=== PATIENT | male | born 1985 | race Caucasian/White ===

== ENCOUNTER 2018-11-04 07:29 | Observation (INO) ==
--- NOTE | 2018-11-04 07:46 | Emergency Department Note ---
Disposition Clinical Impression: Acute epiglottitis without airway obstruction Pharyngitis Qualifiers: Pharyngitis/tonsillitis etiology: unspecified etiology Qualified Code(s): J02.9 - Acute pharyngitis, unspecified Diabetes Qualifiers: Diabetes mellitus type: type 2 Diabetes mellitus roasterman insulin use: without roasterman use Diabetes mellitus complication status: without complication Qualified Code(s): E11.9 - Type 2 diabetes mellitus without complications Disposition: Admitted As Inpatient Condition: Fair Time of Disposition: 11:06 General Adult HPI - General Stated complaint: cant talk/swallow Time Seen by Provider: 11/04/18 07:31 Source: patient, family Limitations: no limitations Nursing Notes Reviewed: Yes Vital Signs Reviewed: Yes - History of Present Illness HPI Narrative: 33-year-old male with history of diabetes and hypothyroidism who presents the emergency department with complaints of painful swallowing, hoarse voice and inability to tolerate food or fluids over the last 24 hours. The patient states this started initially as nasal congestion proximally 3 days ago and since progressed to sore throat. Since yesterday he has not eaten or drank anything as he states it is too painful to swallow. He also states he feels his voice is more high-pitched than usual. He states he had sick contact of his who had similar symptoms last week. He denies any fever, nausea, vomiting, abdominal pain, chest pain, shortness of breath, rashes, ear pain. He notes he did get childhood vaccinations. Pain Scale: 9 - Related Data Home Medications Medication Instructions Recorded Confirmed GlyBURIDE DAILY 11/04/18 Levothyroxine 11/04/18 11/04/18 Lisinopril DAILY 11/04/18 metFORMIN BID 11/04/18 Previous Rx's Medication Instructions Recorded Ibuprofen [Motrin] 800 mg PO Q8HR #30 tablet 07/10/18 Allergies Allergy/AdvReac Type Severity Reaction Status Date / Time No Known Allergies Allergy Verified 07/10/18 16:39 Review of Systems: ROS per history of present illness, all other systems reviewed and negative or normal. All systems ED: reviewed and negative except as stated. Review of Systems: As Per HPI Past Medical History - Past Medical History Medical history: Reports: diabetes, myocardial infarction Psychiatric history: Reports: no psych history - Social History Smoking Status: Never smoker Smokeless Tobacco Status: No Alcohol use: Reports: occasionally Drug use: Reports: none Physical Exam General: Conversant. No apparent distress. Follow commands. Appears stated age. Patient spitting his secretions into a plastic bottle. No hoarse or muffled voice. Neck: No JVD. Trachea midline. Neck supple. Bilateral anterior cervical painful lymphadenopathy. Eyes: PERRL. No scleral icterus. HENT: Normocephalic and atraumatic. Moist mucus membranes. Patient is status post adenoidectomy. There is no uvular swelling or deviation. No peritonsillar asymmetry. No sublingual tenderness. Able to retract and protrude jaw with slight pain. Cardiovascular: Regular rate and rhythm. Normal S1 and S2. No murmurs appreciated. Normal capillary refill. Extremities well perfused with 2+ distal pulses bilaterally. No edema. Pulmonary: Normal and equal breath sounds bilaterally, anteriorly and posteriorly. No wheezes, rales, or rhonchi. Not in respiratory distress. Speaks in full sentences. No stridor. Abdomen: Soft, nondistended, and tontender. No bruits or masses. No guarding. Neuro: Alert and oriented x3. No slurred speech. Skin: No rashes noted on visualized skin. Musculoskeletal: No bony abnormalities visualized. Moves all extremities. Psych: Normal mood. Pleasant. Makes appropriate eye contact. - General Limitations: no limitations General appearance: alert, in no apparent distress Course - Reevaluation(s) Reevaluation #1: XR soft tissue neck shows enlarged epiglottis, unable to full visualize prevertebral spaces. Patient continues to be unable to tolerate secretions but he is otherwise very comfortable, maintaining 100% saturation Time: 08:15 Reevaluation #2: Patient reevaluated and continues to spit his secretions into bottle but he continues to have no stridor, wheezing, or difficulty breathing. Time: 10:58 - Consultations Consultation #1: Discussed case with ENT nurse practitioner. She recommends 20mg decadron and agrees with plan for IV antibiotics and CT. At this point the patient continues to be stable and in no acute distress, maintain saturation on room air. Time: 08:40 Consultation #2: Discussed case with radiologist who agrees there is definitely laryngitis as well as epiglottitis evidenced on CT soft tissue neck. Time: 10:44 Vital Signs Temperature 98.1 F 11/04/18 07:32 Pulse Rate 87 11/04/18 07:32 Respiratory Rate 18 06/17/19 07:32 Blood Pressure 144/98 11/04/18 07:32 O2 Sat by Pulse Oximetry 98 11/04/18 07:32 Temperature 97.9 F 11/04/18 15:22 Pulse Rate 87 11/04/18 15:22 Respiratory Rate 18 11/04/18 15:22 Blood Pressure 144/90 11/04/18 15:22 O2 Sat by Pulse Oximetry 93 11/04/18 15:22 Oxygen Delivery Oxygen Delivery Room Air Medical Decision Making - MDM Narrative Medical decision making narrative: 33-year-old male who presents to emergency department with complaints of difficulty swallowing. On arrival patient is unable to tolerate his secretions. He does appear comfortable however and is not stridorous or having difficulty breathing. We did obtain an x-ray soft tissue neck which shows enlarged epiglottis, concerning for epiglottitis. Especially given the patient's inability to tolerate his secretions we did obtain CT soft tissue neck with IV contrast which shows epiglottitis and pharyngitis. The patient continues to maintain a patent airway with 100% oxygen saturation on room air without stridor or tripoding. I did discuss the case with on-call ENT nurse practitioner, Sierra Simmons who recommends 20 mg Decadron and agrees with plan for clindamycin and ceftriaxone. They will consult to see the patient upon admission. At this time the patient does not require immediate intervention and is therefore stable for inpatient admission. Discussed case with on-call hospitalist Dr. Rodriguez who agrees with plan for admission and accepts the patient to the inpatient service. Patient agrees with and understands course of treatment plan including plan for admission. All questions answered. - Medical Records Medical records reviewed: Yes I reviewed the patient's medical records. - Lab Data Lab results reviewed: Yes I reviewed the patient's lab results. Result diagrams: 11/04/18 08:37 11/04/18 08:37 Lab Results 11/04/18 11/04/18 Range/Units 08:37 08:37 WBC 11.6 H (4.3-11.1) K/mcL RBC 5.02 (4.19-5.50) M/mcL Hgb 14.1 (12.9-16.9) g/dL Hct 42.9 (37.5-50.1) % MCV 85.5 (83.0-100.0) fL MCH 28.1 (28.0-33.3) pg MCHC 32.9 (31.6-35.5) g/dL RDW 12.1 (11.5-14.5) % Plt Count 226 (140-400) K/mcL MPV 10.5 (9.4-12.4) fL Immature Gran % 0.5 (0-4) % Seg Neutrophils % 72.0 % Lymphocytes % 19.4 % Monocytes % 5.7 % Eosinophils % 2.1 % Basophils % 0.3 % Neutrophils # 8.4 (1.6-8.9) K/mcL Lymphocytes # 2.3 (0.6-4.6) K/mcL Monocytes # 0.7 (0.0-1.3) K/mcL Eosinophils # 0.2 (0.0-0.6) K/mcL Basophils # 0.0 (0.0-0.2) K/mcL Sodium 138 (136-145) mEq/L Potassium 4.1 (3.5-5.1) mEq/L Chloride 98 (98-107) mEq/L Carbon Dioxide 31 H (23-29) mEq/L BUN 10 (6-20) mg/dL Creatinine 0.70 (0.70-1.30) mg/dL Est GFR ( Amer) > 60 (> 60) Est GFR (Non-Af Amer) > 60 (> 60) BUN/Creatinine Ratio 14 (6-26) Glucose 270 H (70-105) mg/dL Calculated Osmolality 295 (280-300) Calcium 9.6 (8.6-10.3) mg/dL - Radiology Data Radiology results reviewed: Yes I reviewed the patient's radiology results. Soft Tissue Neck X-Ray 11/04/18 07:54 IMPRESSION: Nonspecific thickening of the epiglottis which could be related to acute epiglottitis. Dedicated CT of the neck with IV contrast is recommended for further evaluation. D/ / 11/04/2018 08:39:45 Torito Bell MD / andre Interpreting Provider: Torito Bell MD Soft Tissue Neck CT 11/04/18 08:18 IMPRESSION: 1. Findings concerning for acute epiglottitis and laryngitis. 2. No discrete abscess. 3. Dental caries. 4. Left mastoid effusion, correlate with signs of infection. D/ / 11/04/2018 10:48:50 Torito Bell MD / rosalia Interpreting Provider: Torito Bell MD Attestation Statement - Attestation Attestation: I, Drew Francisco, examined this patient and my medical decision-making was reviewed with the LUNCHROOM MOTHER/PA/Advanced Practice Nurse/Resident Physician. I agree with the documented findings, disposition and treatment plan as described except to the extent set forth below. 33-year-old male presents emergency Department with concerns of difficulty swallowing and pain in his throat. Pain is worsening over the 24-48 hours however over the night he was unable to lay flat as it irritated his breathing. Patient denies fever, chills, nausea, vomiting, recent trauma. Does not smoke. Patient noted he had a viral upper respiratory infection last week. Soft tissue x-ray showed swelling of the epiglottis. The CT of soft tissue neck confirmed epiglottitis. Patient was started on antibiotics emergency department. We spoke with the ENT physician who felt comfortable with admitting the patient to the hospital and is aware patient's situation. Patient was admitted to the hospitalist for further care and evaluation.
[2018-11-04] MEDS ORDERED: Dexamethasone 10 MG/ML VIAL PO ONE (08:13)
[2018-11-04] MEDS ORDERED: Isovue-370 500 ML BOTTLE IVP ONE (08:18)
[2018-11-04] MEDS ORDERED: Dexamethasone 4 MG/ML VIAL IVP ONE ×2 (08:23→08:39)
[2018-11-04] MEDS ORDERED: Ketorolac 15 MG/ML VIAL IVP ONE (08:23)
[2018-11-04] MEDS ORDERED: cefTRIAXone 1,000 MG in Water for inj. (sterile) 20 ML 10 ML IVP ONE (08:29)
[2018-11-04] MEDS ORDERED: Clindamycin 900 MG/50 ML 900 MG/50 ML IV.SOLN IVPB ONE (08:30)
[2018-11-04 08:58] LABS: Basophils % 0.3 %; Eosinophils # 0.2 K/mcL (0.0-0.6); Eosinophils % 2.1 %; Hematocrit 42.9 % (37.5-50.1); Hemoglobin 14.1 g/dL (12.9-16.9); Immature Granulocytes % 0.5 % (0-4); Lymphocytes # 2.3 K/mcL (0.6-4.6); Lymphocytes % 19.4 %; Mean Corpuscular HGB Conc 32.9 g/dL (31.6-35.5); Mean Corpuscular Hemoglobin 28.1 pg (28.0-33.3); Mean Corpuscular Volume 85.5 fL (83.0-100.0); Mean Platelet Volume 10.5 fL (9.4-12.4); Monocytes # 0.7 K/mcL (0.0-1.3); Monocytes % 5.7 %; Neutrophils # 8.4 K/mcL (1.6-8.9); Platelet Count 226 K/mcL (140-400); Red Blood Count 5.02 M/mcL (4.19-5.50); Red Cell Distribution Width 12.1 % (11.5-14.5); White Blood Count 11.6 K/mcL (4.3-11.1)
[2018-11-04 09:14] LABS: BUN/Creatinine Ratio 14 (6-26); Blood Urea Nitrogen 10 mg/dL (6-20); Calcium 9.6 mg/dL (8.6-10.3); Carbon Dioxide 31 mEq/L (23-29); Chloride 98 mEq/L (98-107); Glucose 270 mg/dL (70-105); Osmolality,Calculated 295 (280-300); Potassium 4.1 mEq/L (3.5-5.1); Sodium 138 mEq/L (136-145); eGFR For African Americans > 60 (> 60); eGFR For Non-African Americans > 60 (> 60)
--- NOTE | 2018-11-04 11:50 | ENT - Consult Note ---
<Sierra Simmons A - Last Filed: 11/04/18 11:48> Date of Encounter: 11/04/18 Time of Encounter: 11:48 Assessment and Plan (1) Supraglottic edema Current Visit: Yes Status: Acute Patient seen and examined with Nasolaryngoscopy performed at bedside today. Patient currently demonstrates a stable patent airway, with some supraglottic watery edema visualized, not epiglottitis, see nasolaryngoscopy exam findings in procedure note. Patient's respiratory status is currently stable with O2 sats greater than 96% on room air, no wheezing, stridor, or shortness of breath. he reports significant improvement of voice and symptoms of odynophagia and dysphagia with administration of IV Decadron. Recommend IV antibiotics, with continuation of IV Decadron 10 mg every 8 hours 2 more doses, admission for close observation due to potential for airway compromise, with continuous pulse ox. Plan to repeat nasolaryngoscopy exam tomorrow. All questions answered. (2) Airway compromise Current Visit: Yes Status: Acute Airway is currently patent, with patency demonstrated on CT scan obtained, as well as, visualized with nasolaryngoscopy exam. Recommend continuous pulse ox, with suction at bedside. History of Present Illness Consult date: 11/04/18 Reason for ENT Consult: airway complication, other (possible epiglottitis) Requesting physician: Reny Oliva History of present illness: Patient is 33-year-old male with past medical history of diabetes, hypothyroidism, obesity, and prior tonsillectomy, who presented to the emergency department with complaint of dysphagia, odynophagia, increased hoarseness, shortness of breath, and difficulty controlling secretions for the past 24 hours. Patient reports he has had symptoms of increased nasal and sinus congestion with postnasal drainage for 3-5 days, prior to start of symptoms. Upon arrival patient had x-ray obtained which demonstrated some thickening of the epiglottis and ENT was subsequently consulted for evaluation due to concern of airway obstruction, acute epiglottitis. Vitals are currently stable, with O2 saturation greater than 96% on room air. Patient is currently able to speak without difficulty, no severe hoarseness noted. No shortness of breath, stridor, or wheezing at this time. Past Med Surg Social Fam HX - Past Medical History Medical history: diabetes, myocardial infarction Psychiatric history: no psych history - Social History Smoking Status: Never smoker Smokeless Tobacco Status: No Alcohol use: occasionally Drug use: none Medications and Allergies Ibuprofen [Motrin] 800 mg PO Q8HR #30 tablet 07/10/18 [Rx] GlyBURIDE DAILY 11/04/18 [History] Levothyroxine 11/04/18 [History] Lisinopril DAILY 11/04/18 [History] metFORMIN BID 11/04/18 [History] Allergy/AdvReac Type Severity Reaction Status Date / Time No Known Allergies Allergy Verified 07/10/18 16:39 ENT - ROS - EENT Nose, mouth and throat: hoarseness, odynophagia, sore throat, other (difficulty controlling secretions) ENT Exam Initial Vital Signs Temp Pulse Resp BP Pulse Ox 98.1 F 87 18 144/98 98 11/04/18 07:32 11/04/18 07:32 11/04/18 07:32 11/04/18 07:32 11/04/18 07:32 - General physical appearance well developed, well nourished, no distress - Eyes PERRL, normal ocular movement - ENT normal pinna, CN 2-12 grossly intact, Other (Oral: Teeth with severe decay upper and lower, oral mucosa moist, no edema or fullness palpated to the tongue or floor of mouth, uvula midline, oropharynx widely patent, tonsil surgically absent. Nose: Nares patent bilaterally, clear rhinorrhea present, septum deviated to the left, inferior turbinate hypertrophy bilateral. EARS: EACs clear bilaterally, TMs with mild retraction bilaterally, tympanosclerosis noted to bilateral TMs. No perforation) - Neck no masses, trachea midline, no lymphadectomy - Respiratory normal expansion, normal respiratory effort - Neurologic CN 2-12 grossly intact, normal coordination, normal sensation - Musculoskeletal normal gait, normal posture - Psychiatric oriented to time, oriented to person, oriented to place, speech is normal Exam Initial Vital Signs Temp Pulse Resp BP Pulse Ox 98.1 F 87 18 144/98 98 11/04/18 07:32 11/04/18 07:32 11/04/18 07:32 11/04/18 07:32 11/04/18 07:32 Results - Labs 11/04/18 08:37 11/04/18 08:37 Abnormal lab results WBC 11.6 K/mcL (4.3-11.1) H 11/04/18 08:37 Carbon Dioxide 31 mEq/L (23-29) H 11/04/18 08:37 Glucose 270 mg/dL (70-105) H 11/04/18 08:37 Diabetes panel 11/04/18 Range/Units 08:37 Sodium 138 (136-145) mEq/L Potassium 4.1 (3.5-5.1) mEq/L Chloride 98 (98-107) mEq/L Carbon Dioxide 31 H (23-29) mEq/L BUN 10 (6-20) mg/dL Creatinine 0.70 (0.70-1.30) mg/dL Glucose 270 H (70-105) mg/dL Calcium 9.6 (8.6-10.3) mg/dL Calcium panel 11/04/18 Range/Units 08:37 Calcium 9.6 (8.6-10.3) mg/dL Pituitary panel 11/04/18 Range/Units 08:37 Sodium 138 (136-145) mEq/L Potassium 4.1 (3.5-5.1) mEq/L Chloride 98 (98-107) mEq/L Carbon Dioxide 31 H (23-29) mEq/L BUN 10 (6-20) mg/dL Creatinine 0.70 (0.70-1.30) mg/dL Glucose 270 H (70-105) mg/dL Calcium 9.6 (8.6-10.3) mg/dL Adrenal panel 11/04/18 Range/Units 08:37 Sodium 138 (136-145) mEq/L Potassium 4.1 (3.5-5.1) mEq/L Chloride 98 (98-107) mEq/L Carbon Dioxide 31 H (23-29) mEq/L BUN 10 (6-20) mg/dL Creatinine 0.70 (0.70-1.30) mg/dL Glucose 270 H (70-105) mg/dL Calcium 9.6 (8.6-10.3) mg/dL All other labs normal. Consult Discharge Plan - Plan Referrals: NONE,PCP [Primary Care Provider] - <Luzma Turner - Last Filed: 11/04/18 16:49> Date of Encounter: 11/04/18 Assessment and Plan (1) Supraglottic edema Current Visit: Yes Status: Acute (2) Airway compromise Current Visit: Yes Status: Acute ENT Exam Initial Vital Signs Temp Pulse Resp BP Pulse Ox 98.1 F 87 18 144/98 98 11/04/18 07:32 11/04/18 07:32 11/04/18 07:32 11/04/18 07:32 11/04/18 07:32 Exam Initial Vital Signs Temp Pulse Resp BP Pulse Ox 98.1 F 87 18 144/98 98 11/04/18 07:32 11/04/18 07:32 11/04/18 07:32 11/04/18 07:32 11/04/18 07:32 Results - Labs 11/04/18 08:37 11/04/18 08:37 Abnormal lab results WBC 11.6 K/mcL (4.3-11.1) H 11/04/18 08:37 Carbon Dioxide 31 mEq/L (23-29) H 11/04/18 08:37 Glucose 270 mg/dL (70-105) H 11/04/18 08:37 Diabetes panel 11/04/18 Range/Units 08:37 Sodium 138 (136-145) mEq/L Potassium 4.1 (3.5-5.1) mEq/L Chloride 98 (98-107) mEq/L Carbon Dioxide 31 H (23-29) mEq/L BUN 10 (6-20) mg/dL Creatinine 0.70 (0.70-1.30) mg/dL Glucose 270 H (70-105) mg/dL Calcium 9.6 (8.6-10.3) mg/dL Calcium panel 11/04/18 Range/Units 08:37 Calcium 9.6 (8.6-10.3) mg/dL Pituitary panel 11/04/18 Range/Units 08:37 Sodium 138 (136-145) mEq/L Potassium 4.1 (3.5-5.1) mEq/L Chloride 98 (98-107) mEq/L Carbon Dioxide 31 H (23-29) mEq/L BUN 10 (6-20) mg/dL Creatinine 0.70 (0.70-1.30) mg/dL Glucose 270 H (70-105) mg/dL Calcium 9.6 (8.6-10.3) mg/dL Adrenal panel 11/04/18 Range/Units 08:37 Sodium 138 (136-145) mEq/L Potassium 4.1 (3.5-5.1) mEq/L Chloride 98 (98-107) mEq/L Carbon Dioxide 31 H (23-29) mEq/L BUN 10 (6-20) mg/dL Creatinine 0.70 (0.70-1.30) mg/dL Glucose 270 H (70-105) mg/dL Calcium 9.6 (8.6-10.3) mg/dL All other labs normal. - Attending Attestation The history, physical exam, and medical decision making was performed by myself in conjunction with the nurse practioner who saw the patient at the bedside. I was physically present and actively performed the examination and medical decision making. I have verified the accuracy of the Nurse practioners documentation with regards to communicating my history, physical exam findings, and medical decision making. Flexible laryngoscopy was performed at the bedside and the findings are dictated in a separate procedure note.
--- NOTE | 2018-11-04 12:03 | ENT - Procedure Note ---
Date of procedure: 11/04/18 Procedure: Procedure: Flexible laryngoscopy, diagnostic CPT 43151 Preprocedure diagnosis: Shortness of breath, airway obstruction Postprocedure diagnosis: Shortness of breath, airway obstruction, supraglottitis Blood loss: 0 Specimen: 0 Anesthesia: Topical, 50-50 mixture of 4% Xylocaine and oxymetazoline Flexible laryngoscopy procedure in detail: Procedure was explained to the patient at the bedside verbal consent was obtained. Bilateral nares are sprayed with a 50-50 mixture of oxymetazoline and topical lidocaine. Time was given to allow anesthesia as well as decongestion of the nasal airway. Flexible laryngoscope was then advanced into the right naris. Nasal mucosa was moist, no polyps no masses no obstruction. Scope was further advanced, nasopharynx was without mass or lesion. tongue base was normal without mass or lesion, petiole of the epiglottis was normal without any edema but the base of the epiglottis did have some watery edema of the mucosa that extended onto the AE folds bilaterally. Also watery edema of the arytenoids and posterior cricoid area. No obstruction, no masses., piriform sinuses with some pooling of secretions, minimal. Some mucoid secretions.. Good glottic opening with full AB duction of the vocal cords bilaterally. Subglottis showed no obstruction. False cords were slightly edematous . There were pachydermic changes of the posterior cricoid area at esophageal inlet. Scope was removed. Patient tolerated this procedure well. Overall assessment shows cervical otitis was watery edema of the supraglottic structures particularly the AE folds arytenoids and posterior cricoid area. Patient with a good glottic opening and no obstruction of the glottis but there is some narrowing in the supraglottic region.. Anesthesia: topical Was there an assistant branch manager present: Yes Slurry Mixer: Sierra Simmons Estimated blood loss (cc): 0 Condition: stable
[2018-11-04] MEDS ORDERED: cefTRIAXone 1,000 MG in Water for inj. (sterile) 20 ML 10 ML IVP SCH (13:00)
[2018-11-04] MEDS ORDERED: cefTRIAXone 1,000 MG in 0.9 % Sodium Chloride Mini Bag 100 ML IVPB SCH (13:00)
--- NOTE | 2018-11-04 13:30 | Internal Med History&Physical ---
<Aliyah Wright - Last Filed: 11/04/18 13:27> Date of Encounter: 11/04/18 Time of Encounter: 13:27 Internal Medicine - H&P: HPI Chief complaint: painful swallowing Admitted From: Emergency Dept Plans for Post Hospital Care: Home History of present illness: Mr. Bojorquez is a 33 year old male with PMHx of hypothyroidism, DM type 2, HTN. Patient arrived to the ED today with 3 days of painful swallowing, cough with green/white sputum production and trouble swallowing secretions. patient states that he had trouble swallowing his secretions so he came to the emergency department. He denies nausea, vomiting, diarrhea, fevers, chills, chest pain, shortness of breath, hematochezi, melena, hematuria. in ED he had CT neck done that showed epiglottitis/laryngitis. There was no evidence of discrete abscess. consult to ENT was made and patient was admitted for IV antibiotics. Past Med Surg Social Fam HX - Past Medical History Medical history: diabetes, myocardial infarction Psychiatric history: no psych history - Social History Smoking Status: Never smoker Smokeless Tobacco Status: No Alcohol use: occasionally Drug use: none Internal Medicine - H&P: Meds Aspirin 81 mg PO DAILY 11/04/18 [History] Glimepiride [Amaryl] 4 mg PO DAILY 11/04/18 [History] Levothyroxine Sodium [Levo-T] 200 mcg PO QAM 11/04/18 [History] Lisinopril [Zestril] 5 mg PO HS 11/04/18 [History] Metformin HCl [Glucophage] 1,000 mg PO BIDWM 11/04/18 [History] Allergy/AdvReac Type Severity Reaction Status Date / Time No Known Allergies Allergy Verified 11/04/18 18:14 All Systems PM: A 10-system review of systems was performed and is negative for pertinent findings except as documented above in the HPI. - Constitutional Constitutional: as per HPI - EENT Eyes: as per HPI Ears: as per HPI Nose, mouth and throat: as per HPI - Breasts Breasts: as per HPI - Cardiovascular Cardiovascular ROS IM: as per HPI - Respiratory Respiratory: as per HPI - Gastrointestinal Gastrointestinal: as per HPI - Genitourinary Genitourinary ROS male: as per HPI - Musculoskeletal Musculoskeletal ROS IM: as per HPI - Integumentary Integumentary IM: as per HPI - Neurological Neurological ROS: as per HPI - Psychiatric Psychiatric: as per HPI - Endocrine Endocrine IM: as per HPI - Hematologic/Lymphatic Hematologic/Lymphatic: as per HPI - Allergic/Immunologic Allergic/Immunologic: as per HPI - Constitutional Vitals: Temp Pulse Resp BP Pulse Ox 98.1 F 84 20 148/94 96 11/04/18 07:38 11/04/18 10:32 11/04/18 10:32 11/04/18 10:32 11/04/18 10:32 General appearance: Present: A&O X 3, pleasant, no acute distress, answers questions appropriately Exam: morbidly obese - Head Head exam: Present: atraumatic, normocephalic - ENT ENT exam: Present: mucous membranes moist Additional comments: mucous membranes moist, no obstructions/masses, abscesses noted. - Neck Neck exam general surgery: Present: supple, trachea midline - Respiratory Respiratory exam: Present: CTAB - Cardiovascular Cardiovascular exam: Present: RRR, +S1, +S2. Absent: diastolic murmur, gallop, systolic murmur - GI/Abdominal GI/Abdominal exam: Present: normal bowel sounds. Absent: distended, soft, tenderness - Extremities Exam Extremities exam: Absent: cyanotic, pedal edema, tenderness - Neurological Exam Neurological exam: Present: alert, oriented X3, no focal deficits - Skin Skin exam: Present: dry. Absent: cyanosis Internal Med - H&P Results - Labs CBC & Chem 7: 11/04/18 08:37 11/04/18 08:37 Labs: Short CBC 11/04/18 Range/Units 08:37 WBC 11.6 H (4.3-11.1) K/mcL Hgb 14.1 (12.9-16.9) g/dL Hct 42.9 (37.5-50.1) % Plt Count 226 (140-400) K/mcL Neutrophils # 8.4 (1.6-8.9) K/mcL BMP 11/04/18 08:37 Sodium 138 Potassium 4.1 Chloride 98 Carbon Dioxide 31 H BUN 10 Creatinine 0.70 Glucose 270 H Calcium 9.6 - Impressions ITS Impressions Soft Tissue Neck X-Ray 11/04/18 07:54 IMPRESSION: Nonspecific thickening of the epiglottis which could be related to acute epiglottitis. Dedicated CT of the neck with IV contrast is recommended for further evaluation. D/ / 11/04/2018 08:39:45 Torito Bell MD / [facility] Interpreting Provider: Torito Bell MD Soft Tissue Neck CT 11/04/18 08:18 IMPRESSION: 1. Findings concerning for acute epiglottitis and laryngitis. 2. No discrete abscess. 3. Dental caries. 4. Left mastoid effusion, correlate with signs of infection. Results were discussed with Dr. Oliva at 10:41 a.m. on 11/04/2018. D/ / 11/04/2018 10:48:50 Torito Bell MD / [email or web address] Interpreting Provider: Torito Bell MD Chest X-Ray 11/04/18 10:59 IMPRESSION: 1. No radiographic finding to account for patient's cough. D/ / Augustine Partida MD / Augustine Partida MD Interpreting Provider: Augustine Partida MD - Assessment and Plan (1) Acute epiglottitis without airway obstruction Current Visit: Yes Status: Acute Assessment and plan: patient complaining of 3 days of neck pain, trouble swallowing, cough with sputum production. CXR unremarkable. CT neck shows epiglottitis and laryngitis without any discrete abscess or dental caries. Plan: consult to ENT-appreciate recs. s/p nasolaryngoscopy at bedside, with plan for repeat scope tomorrow. 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 Diabetes mellitus complication status: without complication Qualified Code(s): E11.9 - Type 2 diabetes mellitus without complications (4) Hypothyroidism Current Visit: Yes Status: Acute Assessment and plan: continue synthroid Qualifiers: Hypothyroidism type: unspecified Qualified Code(s): E03.9 - Hypothyroidism, unspecified (5) DVT prophylaxis Current Visit: Yes Status: Acute Assessment and plan: heparin SQ - Time Spent With Patient Total time spent is greater than 50% in coordination of care (as documented) at patient's floor/unit and/or counseling patient: <Kailey Rodriguez Z - Last Filed: 11/05/18 07:24> Date of Encounter: 11/04/18 Internal Medicine - H&P: HPI History of present illness: Mr. Bojorquez is a 33 year old male All Systems PM: A 10-system review of systems was performed and is negative for pertinent findings except as documented above in the HPI. - Constitutional Vitals: Temp Pulse Resp BP Pulse Ox 97.6 F 85 16 151/96 95 11/05/18 07:00 11/05/18 07:00 11/05/18 07:00 11/05/18 07:00 11/05/18 07:00 Internal Med - H&P Results - Labs CBC & Chem 7: 11/05/18 04:50 11/05/18 04:50 Labs: Short CBC 11/04/18 11/05/18 Range/Units 08:37 04:50 WBC 11.6 H 13.4 H (4.3-11.1) K/mcL Hgb 14.1 13.6 (12.9-16.9) g/dL Hct 42.9 42.1 (37.5-50.1) % Plt Count 226 216 (140-400) K/mcL Neutrophils # 8.4 11.5 H (1.6-8.9) K/mcL BMP 11/04/18 11/05/18 08:37 04:50 Sodium 138 138 Potassium 4.1 4.0 Chloride 98 102 Carbon Dioxide 31 H 25 BUN 10 18 Creatinine 0.70 0.65 L Glucose 270 H 319 H Calcium 9.6 9.5 - Impressions ITS Impressions Soft Tissue Neck X-Ray 11/04/18 07:54 IMPRESSION: Nonspecific thickening of the epiglottis which could be related to acute epiglottitis. Dedicated CT of the neck with IV contrast is recommended for further evaluation. D/ / 11/04/2018 08:39:45 Torito Bell MD / [email or web address] Interpreting Provider: Torito Bell MD Soft Tissue Neck CT 11/04/18 08:18 IMPRESSION: 1. Findings concerning for acute epiglottitis and laryngitis. 2. No discrete abscess. 3. Dental caries. 4. Left mastoid effusion, correlate with signs of infection. Results were discussed with Dr. Oliva at 10:41 a.m. on 11/04/2018. D/ / 11/04/2018 10:48:50 Torito Bell MD / [email or web address] Interpreting Provider: Torito Bell MD Chest X-Ray 11/04/18 10:59 IMPRESSION: 1. No radiographic finding to account for patient's cough. D/ / Augustine Partida MD / Augustine Partida MD Interpreting Provider: Augustine Partida MD - Time Spent With Patient Total time spent is greater than 50% in coordination of care (as documented) at patient's floor/unit and/or counseling patient: - Attending Attestation I performed a history and physical examination of the patient and discussed his management with the resident. I reviewed the residents note and agree with the documented findings and plan of care.
[2018-11-04] MEDS ORDERED: Dextrose Gel 15 GM/37.5 ML TUBE PO PRN ×2 (13:44)
[2018-11-04] MEDS ORDERED: *HR* Dextrose 50 % in Water (Syg) 50 ML SYRINGE IVP PRN (13:44)
[2018-11-04] MEDS ORDERED: D5% in Water 1,000 ML IVC PRN (13:44)
[2018-11-04] MEDS: Dexamethasone 4 MG/ML VIAL IVP SCH ×2 (15:44→20:49)
[2018-11-04] MEDS: Insulin LISPRO 300 UNITS/3 ML VIAL SQ SCH (15:46)
[2018-11-04] MEDS: *HR* Heparin 5,000 UNIT/ML VIAL SQ SCH (16:36)
[2018-11-04] MEDS ORDERED: Insulin LISPRO 300 UNITS/3 ML VIAL SQ SCH (21:00)
[2018-11-04] MEDS ORDERED: Dexamethasone 4 MG/ML VIAL IVP SCH (23:00)
[2018-11-05] MEDS: *HR* Heparin 5,000 UNIT/ML VIAL SQ SCH (03:18)
[2018-11-05 05:58] LABS: Basophils % 0.1 %; Hematocrit 42.1 % (37.5-50.1); Hemoglobin 13.6 g/dL (12.9-16.9); Immature Granulocytes % 0.7 % (0-4); Lymphocytes # 1.5 K/mcL (0.6-4.6); Lymphocytes % 11.2 %; Mean Corpuscular HGB Conc 32.3 g/dL (31.6-35.5); Mean Corpuscular Hemoglobin 27.5 pg (28.0-33.3); Mean Corpuscular Volume 85.1 fL (83.0-100.0); Mean Platelet Volume 11.2 fL (9.4-12.4); Monocytes # 0.3 K/mcL (0.0-1.3); Neutrophils # 11.5 K/mcL (1.6-8.9); Platelet Count 216 K/mcL (140-400); Red Blood Count 4.95 M/mcL (4.19-5.50); Red Cell Distribution Width 12.1 % (11.5-14.5); White Blood Count 13.4 K/mcL (4.3-11.1)
[2018-11-05 06:12] LABS: BUN/Creatinine Ratio 28 (6-26); Blood Urea Nitrogen 18 mg/dL (6-20); Calcium 9.5 mg/dL (8.6-10.3); Carbon Dioxide 25 mEq/L (23-29); Chloride 102 mEq/L (98-107); Glucose 319 mg/dL (70-105); Osmolality,Calculated 300 (280-300); Sodium 138 mEq/L (136-145); eGFR For African Americans > 60 (> 60); eGFR For Non-African Americans > 60 (> 60)
[2018-11-05] MEDS ORDERED: cefTRIAXone 1,000 MG in Water for inj. (sterile) 20 ML 10 ML IVP SCH (08:00)
[2018-11-05] MEDS: Insulin LISPRO 300 UNITS/3 ML VIAL SQ SCH ×2 (08:05→12:34)
[2018-11-05] MEDS ORDERED: MethylPREDNISolone 40 MG/ML VIAL IVP SCH (10:00)
[2018-11-05 10:43] VITALS: BP 147/98
--- NOTE | 2018-11-05 13:13 | Discharge Summary ---
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 Bojorquez is a 33 year old male PMHx of hypothyroidism, DM type 2, HTN. Patient arrived to the ED with 3 days of painful swallowing, cough with green/white sputum production and trouble swallowing secretions. CT neck done that showed epiglottitis/laryngitis. ENT was consulted. patient managed with broad spectrum and IV steroids. patient underwent nasolaryngoscopy on the day of admission and today morning. After nasolaryngoscopy ENT recommended to DC patient home on oral antibiotics, no need for steroid taper as airways inflammation had completely resolved. Patient ins hemodynamically stable to be discharged home. - Time Spent with Patient Total time spent providing and/or coordinating discharge services: Time spent: Greater than 30 minutes (35) - Discharge Medications Prescriptions: New Amoxicillin/Clavulanate [Augmentin] 875 mg PO BIDWM 7 Days #14 tablet Continued Glimepiride [Amaryl] 4 mg PO DAILY Levothyroxine Sodium [Levo-T] 200 mcg PO QAM Lisinopril [Zestril] 5 mg PO HS Metformin HCl [Glucophage] 1,000 mg PO BIDWM Aspirin 81 mg PO DAILY Home Medications: Aspirin 81 mg PO DAILY 11/04/18 [History] Glimepiride [Amaryl] 4 mg PO DAILY 11/04/18 [History] Levothyroxine Sodium [Levo-T] 200 mcg PO QAM 11/04/18 [History] Lisinopril [Zestril] 5 mg PO HS 11/04/18 [History] Metformin HCl [Glucophage] 1,000 mg PO BIDWM 11/04/18 [History] Amoxicillin/Clavulanate [Augmentin] 875 mg PO BIDWM 7 Days #14 tablet 11/05/18 [Rx] Allergies/Adverse Reactions: Allergy/AdvReac Type Severity Reaction Status Date / Time No Known Allergies Allergy Verified 11/04/18 18:14 Date of admission: 11/04/18 12:42 Primary care physician: PCP NONE Consults: 11/04/18 08:51 Consult to ENT [CONS] Stat Consulting Provider: ENT Ibeth Reason for Consult: evaluate for epiglottitis Time Notified: 08:42 Call Completed: Yes - Constitutional Vitals: Temp Pulse Resp BP Pulse Ox 97.9 F 80 17 147/98 94 11/05/18 10:42 11/05/18 10:42 11/05/18 10:42 11/05/18 10:42 11/05/18 10:42 General appearance: Present: A&O X 3, pleasant, no acute distress, answers questions appropriately Exam: Vitals: Reviewed General: Morbidly obese, Alert and oriented x4. In no distress Cardiovascular: RRR, normal S1 & S2, no rubs, murmurs or gallops. No JVD. Pulse regular. Lungs: CTA b/l, no wheezes or crackles. Abdomen: Obese, soft, non-tender, no rigidity. Extremities: No deformity, no edema or tenderness, no joint swelling or clubbin g. Neurological: Normal cognition and motor skills. Rest of the physical exam is non contributory - Patient Status Disposition: Home, Self-Care Condition: Good Functional capacity at discharge: independent ambulation Overall status at discharge: patient is back to baseline - Discharge Instructions Follow Up With: NONE,PCP [Primary Care Provider] - Forms: ED Satisfaction Letter, Work/School Release - Diet and Activity Activity: resume usual activities as tolerated Diet: low salt diet
[2018-11-05] MEDS ORDERED: Aminoglycoside Consult 1 EACH MC ONE (14:09)
--- NOTE | 2018-11-05 18:31 | ENT - Progress Note ---
<Sierra Simmons Rose Mary - Last Filed: 11/05/18 18:27> Date of Encounter: 11/05/18 Time of Encounter: 12:45 - Assessment and Plan (1) Supraglottic edema Status: Acute Resolved. Repeat nasolaryngoscopy performed at bedside today, which demonstrated resolution of previously visualized supraglottic edema. Airway is widely patent, no masses, polyps, or lesions noted. Patient is stable for discharge home from ENT standpoint. Would recommend oral antibiotics at discharge. No follow up with ENT required. Subjective Patient reports: no new complaints, feels better, tolerating liquids well, tolerating a regular diet Objective Initial Vital Signs Temp Pulse Resp BP Pulse Ox 98.1 F 87 18 144/98 98 11/04/18 07:32 11/04/18 07:32 11/04/18 07:32 11/04/18 07:32 11/04/18 07:32 - General physical appearance well developed, well nourished, no distress - Eyes PERRL, normal ocular movement - ENT normal pinna, normal nares, normal mucosa, Other (Repeat nasolaryngoscopy exam demonstrated resolution of previously visualized supraglottic edema.) - Neck no masses, trachea midline, no lymphadectomy - Respiratory normal expansion, normal respiratory effort - Neurologic CN 2-12 grossly intact, normal coordination, normal sensation - Musculoskeletal normal gait, normal posture - Psychiatric oriented to time, oriented to person, oriented to place - Labs 11/05/18 04:50 11/05/18 04:50 Diabetes panel 11/05/18 Range/Units 04:50 Sodium 138 (136-145) mEq/L Potassium 4.0 (3.5-5.1) mEq/L Chloride 102 (98-107) mEq/L Carbon Dioxide 25 (23-29) mEq/L BUN 18 (6-20) mg/dL Creatinine 0.65 L (0.70-1.30) mg/dL Glucose 319 H (70-105) mg/dL Calcium 9.5 (8.6-10.3) mg/dL Calcium panel 11/05/18 Range/Units 04:50 Calcium 9.5 (8.6-10.3) mg/dL Pituitary panel 11/05/18 Range/Units 04:50 Sodium 138 (136-145) mEq/L Potassium 4.0 (3.5-5.1) mEq/L Chloride 102 (98-107) mEq/L Carbon Dioxide 25 (23-29) mEq/L BUN 18 (6-20) mg/dL Creatinine 0.65 L (0.70-1.30) mg/dL Glucose 319 H (70-105) mg/dL Calcium 9.5 (8.6-10.3) mg/dL Adrenal panel 11/05/18 Range/Units 04:50 Sodium 138 (136-145) mEq/L Potassium 4.0 (3.5-5.1) mEq/L Chloride 102 (98-107) mEq/L Carbon Dioxide 25 (23-29) mEq/L BUN 18 (6-20) mg/dL Creatinine 0.65 L (0.70-1.30) mg/dL Glucose 319 H (70-105) mg/dL Calcium 9.5 (8.6-10.3) mg/dL Consult Discharge Plan - Plan Referrals: NONE,PCP [Primary Care Provider] - (Please call and schedule a hospital follow up in 5-7 days from discharge with your PCP. Phone number:[phone]. Will allow you to schedule due to patients work schedule. Thank you!) Prescriptions: Amoxicillin/Clavulanate [Augmentin] 875 mg PO BIDWM 7 Days #14 tablet <Luzma Turner - Last Filed: 11/07/18 07:54> Date of Encounter: 11/07/18 - Assessment and Plan (1) Supraglottic edema Status: Acute (2) Airway compromise Status: Resolved The history, physical exam, and medical decision making was performed by myself in conjunction with the nurse practioner who saw the patient at the bedside. I was physically present and actively performed the examination and medical decision making. I have verified the accuracy of the Nurse practioners documentation with regards to communicating my history, physical exam findings, and medical decision making. Repeat flexible laryngoscopy was performed at the bedside to evaluate airway. Laryngoscopy, flexible fiberoptic; diagnosti CPT: 50178 Preprocedure diagnosis: Supraglottitis Postprocedure diagnosis: Same Flexible laryngoscopy: Procedure was explained to the patient at the bedside verbal consent was obtained. Bilateral nares are sprayed with a 50-50 mixture of oxymetazoline and topical lidocaine. Time was given to allow anesthesia as well as decongestion of the nasal airway. Flexible laryngoscope was then advanced into the right naris. Nasal mucosa was dry and atrophic. Scope was further advanced, nasopharynx was within normal limits, tongue base was normal without mass or lesion, epiglottis was normal, piriform sinuses were open without mass or obstruction. Previous swelling of the distal epiglottis and supraglottic tissue had resolved. No obstruction, no narrowing, true vocal cords normal mobility and healthy mucosa. Scope was removed. Patient tolerated this procedure well. Overall assessment shows There is no obstruction or mass blocking her airway. Airway is fully patent. No further swelling of the supraglottic structures. I do deem this patient clinically stable for discharge. This was discussed with the hospitalist. DC patient home on by mouth antibiotics. c Objective Initial Vital Signs Temp Pulse Resp BP Pulse Ox 98.1 F 87 18 144/98 98 11/04/18 07:32 11/04/18 07:32 11/04/18 07:32 11/04/18 07:32 11/04/18 07:32 - Labs 11/05/18 04:50 11/05/18 04:50
[2018-11-05] MEDS ORDERED: Insulin DETEMIR 100 UNIT/ML X5UNITS SQ SCH (21:00)
== END 2018-11-05 14:10 | disposition home or self-care (01) ==
LOC: EMEROOARM 07:29 → 2ANU 07:29
PROVIDERS: ADMIT Internal Medicine Nephrology; ATTEND Internal Medicine Nephrology